=== PATIENT | male | born 1975 | race Caucasian/White ===

== ENCOUNTER 2022-06-18 17:50 | Outpatient (CLI) | payer MEDICAID | END 2022-06-18 17:51 | disposition critical access hospital (66) | LOC: EMS 17:50 | DX: S30.811A Abrasion of abdominal wall, initial encounter (principal); S20.312A Abrasion of left front wall of thorax, initial encounter; M25.552 Pain in left hip; R10.2 Pelvic and perineal pain; V43.53XA Car driver injured in collision with pick-up truck in traffic accident, initial encounter; Y92.413 State road as the place of occurrence of the external cause | CPT/HCPCS: A0425; A0429 ==

== ENCOUNTER 2022-06-18 18:11 | Emergency (ER) | payer MEDICAID ==
[2022-06-18] MEDS ORDERED: SODIUM CHLORIDE 0.9% 1,000 ML IV STA (18:20)
[2022-06-18] MEDS ORDERED: iohexoL-300 100 ML VIAL ONE (18:22)
[2022-06-18 18:30] LABS: BASOPHILS # (AUTO) 0.1 10^3/uL (0.0-0.1); BASOPHILS % (AUTO) 0.6 %; EOSINOPHILS # (AUTO) 0.1 10^3/uL (0.0-0.7); HCT - HEMATOCRIT 44.6 % (42.0-52.0); HGB - HEMOGLOBIN 14.6 g/dL (14.0-18.0); LYMPHOCYTES # (AUTO) 3.2 10^3/uL (1.5-3.5); LYMPHOCYTES % (AUTO) 30.1 %; MEAN CORPUSCULAR HGB CONC 32.7 g/dL (32.0-36.0); MEAN CORPUSCULAR VOLUME 88.5 fL (80.0-94.0); MEAN PLATELET VOLUME 10.2 fL (7.4-11.4); MONOCYTES # (AUTO) 0.6 10^3/uL (0.0-1.0); MONOCYTES % (AUTO) 5.7 %; NEUTROPHILS # (AUTO) 6.6 10^3/uL (1.5-6.6); NEUTROPHILS % (AUTO) 62.1 %; PLT - PLATELET COUNT 323 10^3/uL (130-450); RED BLOOD COUNT 5.04 10^6/uL (4.70-6.10); RED CELL DISTRIBUTION WIDTH 12.5 % (12.0-15.0); WHITE BLOOD COUNT 10.6 x10^3/uL (4.8-10.8)
[2022-06-18 18:38] LABS: PT - PROTHROMBIN TIME 11.3 secs (9.9-12.6)
[2022-06-18] MEDS ORDERED: LORazepam 2 MG/ML VIAL IVP STA (18:39)
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
[2022-06-18 18:45] LABS: ALBUMIN 4.3 g/dL (3.2-5.5); ALBUMIN/GLOBULIN RATIO 1.3 (1.0-2.2); BILIRUBIN,TOTAL 0.7 mg/dL (0.2-1.0); CALCIUM 8.8 mg/dL (8.5-10.3); CREATININE 1.1 mg/dL (0.6-1.2); POTASSIUM 3.7 mmol/L (3.5-5.0); TOTAL PROTEIN 7.5 g/dL (6.7-8.2)
[2022-06-18] MEDS ORDERED: iohexoL-300 100 ML VIAL IVP ONE (19:00)
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
[2022-06-18] MEDS ORDERED: KETOROLAC 30 MG/ML VIAL IVP STA (20:01)
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
[2022-06-18 21:16] VITALS: BP 123/112
== END 2022-06-18 21:14 | disposition home or self-care (01) ==
LOC: EDBD → ED 18:11
DX: S79.912A Unspecified injury of left hip, initial encounter (principal); V43.53XA Car driver injured in collision with pick-up truck in traffic accident, initial encounter
CPT/HCPCS: 36415; 70450; 71260; 72125; 73552; 74177; 80053; 80320; 83690; 85025; 85610; 96361; 96374; 96375; 99284; J2060; Q9967